=== PATIENT | male | born 1975 | race Caucasian/White ===

== ENCOUNTER 2020-08-14 05:30 | Emergency (ER) | payer SELFPAY ==
[~2020-08-14] VITALS: Ht 180.3 cm; Wt 90.7 kg
--- NOTE | 2020-08-14 05:31 | NUR ---
BIBEMS C/O NONTRAUMATIC LOW BACK PAIN X3HRS. TOOK IBUPROFEN 600MG 30MIN APPLICATIONS ADMINISTRATOR; PT AAOX4 -SOB, NAD NOTED, VSS, PENDING MD LAGOS
[2020-08-14] MEDS ORDERED: HYDROMORPHONE 1 MG/1 ML DISP.SYRIN ONE (05:51)
[2020-08-14] MEDS ORDERED: ONDANSETRON HCL/PF 4 MG/2 ML VIAL ONE (05:51)
[2020-08-14] MEDS: ONDANSETRON HCL/PF 4 MG/2 ML VIAL IVP ONE (05:55)
[2020-08-14] MEDS: HYDROMORPHONE INJ 2 MG/ML DISP.SYRIN IV ONE (05:55)
[2020-08-14] MEDS ORDERED: LORAZEPAM INJ 2 MG/ML VIAL ONE (05:56)
[2020-08-14 05:58] LABS: BASOPHILS % (AUTO) 0.4 % (0.0-2.0); EOSINOPHILS % (AUTO) 0.6 % (0.0-6.0); HEMATOCRIT 50 % (39-51); HEMOGLOBIN 17.2 g/dL (13.5-17.5); LYMPHOCYTES # (AUTO) 4.6 /CMM (0.8-4.8); LYMPHOCYTES % (AUTO) 53.6 % (20.0-44.0); MEAN CORPUSCULAR HGB CONC 34 g/dl (31.0-36.0); MEAN CORPUSCULAR VOLUME 91 fL (80-96); MONOCYTES # (AUTO) 0.6 /CMM (0.1-1.30); MONOCYTES % (AUTO) 6.4 % (2.0-12.0); NEUTROPHILS # (AUTO) 3.4 /CMM (1.8-8.9); PLATELET COUNT (AUTO) 258 /CMM (150-450); RED BLOOD CELL COUNT(AUTO) 5.52 MIL/uL (4.5-6.0); WHITE BLOOD COUNT (AUTO) 8.7 K/uL (4.3-11.0)
[2020-08-14] MEDS: LORAZEPAM INJ 2 MG/ML VIAL IV ONE (06:02)
[2020-08-14 06:08] LABS: CALCIUM, SERUM 9.3 mg/dL (8.5-10.1); CARBON DIOXIDE 23 mmol/L (21-32); CHLORIDE 101 mmol/L (98-107); CREATININE 1.3 mg/dL (0.6-1.3); GLUCOSE 151 mg/dL (74-106); POTASSIUM 2.9 mmol/L (3.5-5.1); SODIUM SERUM 137 mmol/L (136-145); UREA NITROGEN, BLOOD 13 mg/dL (7-18)
[2020-08-14 06:13] LABS: ALANINE AMINOTRANSFERASE 56 U/L (12-78); ALBUMIN 4.3 g/dL (3.4-5.0); ALKALINE PHOSPHATASE 46 U/L (46-116); ASPARTATE AMINOTRANSFERASE 33 U/L (15-37); BILIRUBIN,DIRECT 0.2 mg/dL (0.0-0.2); BILIRUBIN,TOTAL 0.8 mg/dL (0.2-1.0); LIPASE 155 U/L (73-393); TOTAL PROTEIN, SERUM 7.5 g/dL (6.4-8.2)
--- NOTE | 2020-08-14 06:56 | NUR ---
PT UNABLE TO PROVIDE URINE SAMPLE AT THIS TIME. URINAL AT BEDSIDE.
--- NOTE | 2020-08-14 08:01 | NUR ---
PATIENT A/OX4, BREATHING EVEN AND UNLABORED, NO SOB NOTED, NEEDS ATTENDED, KEPT COMFORTABLE. PATIENT'S PAIN HAS IMPROVED. ABLE TO MOVE ALL EXTREMITIES WITHOUT PAIN. IV removed. Catheter intact and site benign. Pressure and 4x4 applied to site. No bleeding noted.Patient discharged to home in stable condition. Written and verbal after care instructions given. Patient verbalizes understanding of instruction.
[2020-08-14 08:03] VITALS: BP 149/94
--- NOTE | 2020-08-14 08:23 | NUR ---
WAITING FOR FAMILY TO PICK HIM UP.
== END 2020-08-14 08:33 | disposition home or self-care (01) ==
LOC: ER 05:30
DX: M54.5 Low back pain (principal); R94.31 Abnormal electrocardiogram [ECG] [EKG]; Z90.49 Acquired absence of other specified parts of digestive tract
CPT/HCPCS: 36415; 71045; 74176; 80048; 80076; 83690; 84484; 85025; 85730; 93005; 96374; 96375; 99285; J1170; J2060; J2405